=== PATIENT | female | born 1970 | race Caucasian/White ===

== ENCOUNTER 2017-03-24 18:34 | Emergency (ER) | payer SELFPAY ==
[~2017-03-24] VITALS: Ht 149.9 cm; Wt 80.0 kg
[~2017-03-24 18:34] MED LIST: AMOXICILLIN500 MG PO; AVELOX400 MG OR; BACTRIM DS1 TAB PO; BUSPAR5 MG PO; CIPRO500 MG OR; CITALOPRAM40 MG PO; FLEXERIL PO; FLOMAX0.4 M1 PO; FLOXIN OTIC OT; HYDROCHLOROT25 MG PO; LISINOP/HCTZ1 TA1 PO; LORTAB 10 OR; LORTAB 10-325 M1 TAB PO; LORTAB5 PO; MEDROL4 M1 PO; METFORMIN500 MG PO; NAPROSYN500 MG PO; NO MEDS; PAROXETINE10 MG PO; PAXIL30 MG PO; PREVACID30 M3 PO; ROBITUSS12 OR; TOPAMAX25 MG PO; ULTRAM50 M1 PO; ZOFRAN ODT4 MG PO; ZPAK OR; [UNRECOGNIZED DRUG - OTHER]
[2017-03-24] MEDS ORDERED: MEDDOSEPAK PO (18:51)
[2017-03-24 18:58] VITALS: BP 99/63
== END 2017-03-24 18:58 | disposition home or self-care (01) | DRG 607 ==
LOC: ED 18:34
DX: L30.9 Dermatitis, unspecified (principal)

== ENCOUNTER 2018-03-11 19:22 | Emergency (ER) | payer SELFPAY ==
[~2018-03-11] VITALS: Ht 149.9 cm; Wt 90.0 kg
[~2018-03-11 19:22] MED LIST changes: +MEDDOSEPAK PO
[2018-03-11 19:56] LABS: URINE BILIRUBIN - DIPSTICK NEGATIVE (NEGATIVE); URINE BLOOD DIPSTICK NEGATIVE (NEGATIVE); URINE COLOR YELLOW; URINE GLUCOSE - DIPSTICK NEGATIVE (NEGATIVE); URINE KETONE NEGATIVE (NEGATIVE); URINE LEUK ESTERASE NEGATIVE (NEGATIVE); URINE NITRITE - DIPSTICK NEGATIVE (Negative); URINE PROTEIN - DIPSTICK NEGATIVE (NEG-TRACE); URINE SPECIFIC GRAVITY 1.015; URINE UROBILINOGEN - DIPSTICK 0.2 E.U./dL (0.2)
[2018-03-11 20:29] LABS: URINE CLARITY CLEAR
[2018-03-11 20:40] VITALS: BP 130/78
[2018-03-11] MEDS ORDERED: AMOXICILLIN875 MG PO (20:47)
[2018-03-11] MEDS ORDERED: PROAIR HFA108 MCG/AC IN (20:47)
[2018-03-11] MEDS ORDERED: TESSALON PER100 MG PO (20:47)
== END 2018-03-11 21:10 | disposition home or self-care (01) | DRG 203 ==
LOC: ED 19:22
DX: J98.01 Acute bronchospasm (principal); J44.9 Chronic obstructive pulmonary disease, unspecified; F17.210 Nicotine dependence, cigarettes, uncomplicated; E11.9 Type 2 diabetes mellitus without complications; I10 Essential (primary) hypertension

== ENCOUNTER 2018-07-12 22:08 | Emergency (ER) | payer SELFPAY ==
[~2018-07-12] VITALS: Ht 149.9 cm; Wt 102.0 kg
[~2018-07-12 22:08] MED LIST changes: +AMOXICILLIN875 MG PO; +PROAIR HFA108 MCG/AC IN; +TESSALON PER100 MG PO
[2018-07-12] MEDS ORDERED: LISINOP/HCTZ1 TA1 PO (22:17)
[2018-07-12] MEDS ORDERED: PEPCID20 MG PO (22:50)
[2018-07-12] MEDS ORDERED: MEDDOSEPAK PO (22:50)
[2018-07-12] MEDS ORDERED: BENADRYL 50MG C50 MG PO (22:50)
[2018-07-12 23:15] VITALS: BP 170/97
== END 2018-07-12 23:15 | disposition home or self-care (01) | DRG 916 ==
LOC: ED 22:08
DX: T78.40XA Allergy, unspecified, initial encounter (principal); E11.9 Type 2 diabetes mellitus without complications; I10 Essential (primary) hypertension; F17.200 Nicotine dependence, unspecified, uncomplicated

== ENCOUNTER 2019-03-20 01:57 | Emergency (ER) | payer SELFPAY ==
[~2019-03-20] VITALS: Ht 149.9 cm; Wt 80.0 kg
[~2019-03-20 01:57] MED LIST changes: +BENADRYL 50MG C50 MG PO; +PEPCID20 MG PO
[2019-03-20] MEDS ORDERED: SINGULAIR10 MG PO (02:10)
[2019-03-20] MEDS ORDERED: CITALOPRAM20 M1 PO (02:11)
[2019-03-20] MEDS ORDERED: CORTISPORIN OTI10 M2 AS (02:20)
[2019-03-20 02:33] VITALS: BP 116/81
== END 2019-03-20 02:47 | disposition home or self-care (01) | DRG 156 ==
LOC: ED 01:57
DX: H60.92 Unspecified otitis externa, left ear (principal); E11.9 Type 2 diabetes mellitus without complications; I10 Essential (primary) hypertension; F17.210 Nicotine dependence, cigarettes, uncomplicated

== ENCOUNTER 2019-08-09 | Emergency (ER) | payer SELFPAY ==
[~2019-08-09] MED LIST changes: +CITALOPRAM20 M1 PO; +CORTISPORIN OTI10 M2 AS; +SINGULAIR10 MG PO
[2019-08-09 16:57] LABS: HEMATOCRIT 42.9 % (37.0-47.0); HEMOGLOBIN 13.9 g/dl (12.0-16.0); IMMATURE GRANULOCYTES 0.5 % (0.0-5.0); MEAN CELL VOLUME 90.3 fL CALC (80.0-100.0); MEAN CORPUSCULAR HGB 29.3 pG CALC (26.0-32.0); MEAN CORPUSCULAR HGB CONC 32.4 g/L CALC (32.0-36.0); NEUT# 6.86 thou/uL (2.00-7.15); RED BLOOD COUNT 4.75 mill/uL (4.20-5.60); RED CELL DISTRI WIDTH 11.9 % (11.5-15.5)
[2019-08-09] MEDS ORDERED: VENTOLIN HFA IN (18:11)
[2019-08-09] MEDS ORDERED: PREDNISONE50 MG PO (18:11)
[2019-08-09] MEDS ORDERED: DOXYCYCL HYC100 MG PO (18:11)
== END 2019-08-09 18:32 | disposition home or self-care (01) | DRG 203 ==
PROVIDERS: Family Medicine
DX: J20.9 Acute bronchitis, unspecified (principal); E11.9 Type 2 diabetes mellitus without complications; I10 Essential (primary) hypertension; F17.200 Nicotine dependence, unspecified, uncomplicated; Z79.84 Long term (current) use of oral hypoglycemic drugs

== ENCOUNTER 2019-12-27 11:42 | Emergency (ER) | payer SELFPAY ==
[~2019-12-27 11:42] MED LIST changes: +DOXYCYCL HYC100 MG PO; +PREDNISONE50 MG PO; +VENTOLIN HFA IN
[2019-12-27] MEDS ORDERED: SYMBICORT1 AE1 IN (12:12)
[2019-12-27] MEDS ORDERED: SPIRIVA HANDIHALER IN (12:13)
[2019-12-27 12:31] LABS: HEMATOCRIT 39.8 % (37.0-47.0); HEMOGLOBIN 12.8 g/dl (12.0-16.0); IMMATURE GRANULOCYTES 0.6 % (0.0-5.0); MEAN CELL VOLUME 91.1 fL CALC (80.0-100.0); MEAN CORPUSCULAR HGB 29.3 pG CALC (26.0-32.0); MEAN CORPUSCULAR HGB CONC 32.2 g/dL CAL (32.0-36.0); NEUT# 7.2 thou/uL (2.00-7.15); RED BLOOD COUNT 4.37 mill/uL (4.20-5.60); RED CELL DISTRI WIDTH 12.5 % (11.5-15.5)
[2019-12-27 12:32] LABS: URINE BILIRUBIN - DIPSTICK NEGATIVE (NEGATIVE); URINE BLOOD DIPSTICK NEGATIVE (NEGATIVE); URINE COLOR YELLOW; URINE GLUCOSE - DIPSTICK NEGATIVE (NEGATIVE); URINE KETONE NEGATIVE (NEGATIVE); URINE LEUK ESTERASE NEGATIVE (NEGATIVE); URINE NITRITE - DIPSTICK NEGATIVE (Negative); URINE PROTEIN - DIPSTICK NEGATIVE (NEG-TRACE); URINE UROBILINOGEN - DIPSTICK 0.2 E.U./dL (0.2)
[2019-12-27 12:43] LABS: ALBUMIN 3.8 g/dL (3.2-5.0); ALKALINE PHOSPHATASE 102 u/l (38-126); ANION GAP 9 (6-22 (CALC)); BILIRUBIN, TOTAL 0.4 mg/dL (0.0-1.4); BUN 10 mg/dL (7-17); BUN/CREATININE RATIO 13 (12-20 (CALC)); CARBON DIOXIDE 24 mmol/l (22-30); CHLORIDE 107 mmol/l (95-108); CREATININE 0.8 mg/dL (0.5-1.0); GFR > 60 ML/MIN (>=60 (CALC)); GFR FOR AFR.AMER. > 60 ML/MIN (>=60 (CALC)); LIPASE 63 u/l (23-300); MAGNESIUM 1.9 mg/dL (1.6-2.3); POTASSIUM 4.2 mmol/l (3.5-5.1); SGOT/AST 19 u/l (14-36); SODIUM 137 mmol/l (137-146); TOTAL PROTEIN 6.7 g/dL (6.3-8.2)
[2019-12-27 14:11] VITALS: BP 145/69
== END 2019-12-27 14:21 | disposition home or self-care (01) | DRG 948 ==
LOC: ED 11:42
PROVIDERS: Family Medicine
DX: R53.1 Weakness (principal); R05 Cough; E11.9 Type 2 diabetes mellitus without complications; I10 Essential (primary) hypertension; F17.200 Nicotine dependence, unspecified, uncomplicated; Z20.828 Contact with and (suspected) exposure to other viral communicable diseases

== ENCOUNTER 2020-01-03 16:51 | Emergency (ER) | payer SELFPAY ==
[~2020-01-03 16:51] MED LIST changes: +SPIRIVA HANDIHALER IN; +SYMBICORT1 AE1 IN
[2020-01-03] MEDS ORDERED: AMOXICILLIN875 MG PO (17:37)
[2020-01-03] MEDS ORDERED: LORTAB 1010 MG PO (17:37)
[2020-01-03] MEDS ORDERED: FLOXIN OTIC0.3 % AS (17:37)
[2020-01-03 17:52] VITALS: BP 140/89
== END 2020-01-03 17:53 | disposition home or self-care (01) | DRG 153 ==
LOC: ED 16:51
DX: H66.92 Otitis media, unspecified, left ear (principal); I10 Essential (primary) hypertension; J44.9 Chronic obstructive pulmonary disease, unspecified; F17.210 Nicotine dependence, cigarettes, uncomplicated

== ENCOUNTER 2020-08-13 13:40 | Emergency (ER) | payer SELFPAY ==
[~2020-08-13] VITALS: Ht 149.9 cm; Wt 92.3 kg
[~2020-08-13 13:40] MED LIST changes: +FLOXIN OTIC0.3 % AS; +LORTAB 1010 MG PO
[2020-08-13] MEDS ORDERED: HYDROCHLOROTH12.5 M1 PO (15:15)
[2020-08-13] MEDS ORDERED: METFORMIN500 M2 PO (15:15)
[2020-08-13 15:16] LABS: URINE BILIRUBIN - DIPSTICK NEGATIVE (NEGATIVE); URINE BLOOD DIPSTICK NEGATIVE (NEGATIVE); URINE COLOR YELLOW; URINE GLUCOSE - DIPSTICK NEGATIVE (NEGATIVE); URINE KETONE NEGATIVE (NEGATIVE); URINE LEUK ESTERASE SMALL (Negative); URINE NITRITE - DIPSTICK NEGATIVE (Negative); URINE PH 6.5 (4.5-8.0); URINE PROTEIN - DIPSTICK NEGATIVE (NEG-TRACE); URINE UROBILINOGEN - DIPSTICK 0.2 E.U./dL (0.2)
[2020-08-13] MEDS ORDERED: VENTOLIN HF1 IN (15:16)
[2020-08-13 15:20] LABS: URINE CLARITY HAZY
[2020-08-13 15:27] LABS: URINE RBC 0-2 RBC/hpf (0-5); URINE SQUAMOUS EPITHELIAL CELL MANY EPI/hpf (0-FEW)
[2020-08-13] MEDS ORDERED: TESSALON PERLE100 MG PO (16:14)
[2020-08-13 16:16] VITALS: BP 125/78
== END 2020-08-13 16:44 | disposition home or self-care (01) | DRG 866 ==
LOC: ED 13:40
DX: B34.9 Viral infection, unspecified (principal); I10 Essential (primary) hypertension; J44.9 Chronic obstructive pulmonary disease, unspecified; F17.210 Nicotine dependence, cigarettes, uncomplicated; Z20.822 Contact with and (suspected) exposure to COVID-19

== ENCOUNTER 2021-01-24 10:59 | Emergency (ER) | payer SELFPAY ==
[~2021-01-24] VITALS: Ht 149.9 cm; Wt 85.0 kg
[~2021-01-24 10:59] MED LIST changes: +HYDROCHLOROTH12.5 M1 PO; +METFORMIN500 M2 PO; +TESSALON PERLE100 MG PO; +VENTOLIN HFA108 MCG IN
[2021-01-24] MEDS ORDERED: NAPROXEN500 MG PO (11:56)
[2021-01-24 12:19] VITALS: BP 136/82
== END 2021-01-24 12:19 | disposition home or self-care (01) | DRG 563 ==
LOC: ED 10:59
DX: S43.401A Unspecified sprain of right shoulder joint, initial encounter (principal); I10 Essential (primary) hypertension; J44.9 Chronic obstructive pulmonary disease, unspecified; F17.200 Nicotine dependence, unspecified, uncomplicated; W01.0XXA Fall on same level from slipping, tripping and stumbling without subsequent striking against object, initial encounter; Y92.009 Unspecified place in unspecified non-institutional (private) residence as the place of occurrence of the external cause

== ENCOUNTER 2021-08-25 21:33 | Emergency (ER) | payer SELFPAY ==
[~2021-08-25] VITALS: Ht 149.9 cm; Wt 89.5 kg
[~2021-08-25 21:33] MED LIST changes: +NAPROXEN500 MG PO
[2021-08-25 22:33] LABS: IMMATURE GRANULOCYTES 0.1 % (0.0-5.0); MEAN CELL VOLUME 90.5 fL CALC (80.0-100.0); MEAN CORPUSCULAR HGB 29.5 pG CALC (26.0-32.0); MEAN CORPUSCULAR HGB CONC 32.6 g/dL CAL (32.0-36.0); NEUT# 9.16 thou/uL (2.00-7.15); RED BLOOD COUNT 4.75 mill/uL (4.20-5.60); RED CELL DISTRI WIDTH 11.7 % (11.5-15.5)
[2021-08-25 22:50] LABS: ALKALINE PHOSPHATASE 139 u/l (38-126); ANION GAP 10 (6-22 (CALC)); BILIRUBIN, TOTAL 0.4 mg/dL (0.0-1.4); BUN 13 mg/dL (7-17); BUN/CREATININE RATIO 16 (12-20 (CALC)); CARBON DIOXIDE 28 mmol/l (22-30); CHLORIDE 100 mmol/l (95-108); CREATININE 0.8 mg/dL (0.5-1.0); GFR > 60 ML/MIN (>=60 (CALC)); GFR FOR AFR.AMER. > 60 ML/MIN (>=60 (CALC)); POTASSIUM 4.5 mmol/l (3.5-5.1); SODIUM 133 mmol/l (137-146); TOTAL PROTEIN 7.9 g/dL (6.3-8.2)
[2021-08-25 22:55] LABS: SGOT/AST 39 u/l (14-36)
[2021-08-25 22:58] LABS: ACT PARTIAL THROMBO TIME 24.9 SECONDS (20.0-32.5); INTERNATIONAL NORMALIZED RATIO 0.9 RATIO (0.7-1.3); PROTHROMBIN TIME 9.3 SECONDS (9.0-12.5)
[2021-08-25 23:02] LABS: MYOGLOBIN 30 ng/mL (0 - 62)
[2021-08-25 23:05] LABS: URINE BILIRUBIN - DIPSTICK NEGATIVE (NEGATIVE); URINE BLOOD DIPSTICK NEGATIVE (NEGATIVE); URINE COLOR YELLOW; URINE GLUCOSE - DIPSTICK >=1000 mg/dL (NEGATIVE); URINE KETONE NEGATIVE (NEGATIVE); URINE LEUK ESTERASE NEGATIVE (NEGATIVE); URINE PROTEIN - DIPSTICK NEGATIVE (NEG-TRACE); URINE SPECIFIC GRAVITY 1.015; URINE UROBILINOGEN - DIPSTICK 0.2 E.U./dL (0.2)
[2021-08-25 23:07] LABS: URINE NITRITE - DIPSTICK NEGATIVE (Negative)
[2021-08-26 01:35] VITALS: BP 146/78
== END 2021-08-26 01:40 | disposition home or self-care (01) | DRG 313 ==
LOC: ED 21:33
DX: R07.9 Chest pain, unspecified (principal); I10 Essential (primary) hypertension; J44.9 Chronic obstructive pulmonary disease, unspecified; Z20.822 Contact with and (suspected) exposure to COVID-19; F17.200 Nicotine dependence, unspecified, uncomplicated

== ENCOUNTER 2022-07-29 14:59 | Emergency (ER) | payer BC ==
[~2022-07-29] VITALS: Ht 149.9 cm; Wt 81.8 kg
[2022-07-29] VITALS (10 sets, daily range): BP systolic 115–154; BP diastolic 70–94
[2022-07-29 15:43] LABS: BASO% 0.4 % (0-3); EOS% 0.1 % (0-8); IMMATURE GRANULOCYTES 0.3 % (0.0-5.0); LYMPH% 13.5 % (15-41); MEAN CELL VOLUME 87.5 fL CALC (80.0-100.0); MEAN CORPUSCULAR HGB 30.4 pG CALC (26.0-32.0); MEAN CORPUSCULAR HGB CONC 34.8 g/dL CAL (32.0-36.0); MONO% 6.9 % (2-13); NEUT# 9.2 thou/uL (2.00-7.15); NEUT% 78.8 % (42-76); RED BLOOD COUNT 5.26 mill/uL (4.20-5.60); RED CELL DISTRI WIDTH 11.8 % (11.5-15.5)
[2022-07-29 16:09] LABS: ALBUMIN 4.4 g/dL (3.2-5.0); ANION GAP 13 (6-22 (CALC)); BUN 11 mg/dL (7-17); BUN/CREATININE RATIO 16 (12-20 (CALC)); CARBON DIOXIDE 24 mmol/l (22-30); CHLORIDE 98 mmol/l (95-108); CREATININE 0.7 mg/dL (0.5-1.0); GFR FOR AFR.AMER. > 60 ML/MIN (>=60 (CALC)); GFR OTHER RACES > 60 ML/MIN (>=60 (CALC)); LIPASE 48 u/l (23-300); POTASSIUM 4.6 mmol/l (3.5-5.1); SODIUM 130 mmol/l (137-146); TOTAL PROTEIN 8.5 g/dL (6.3-8.2)
[2022-07-29 16:27] LABS: ALKALINE PHOSPHATASE 225 u/l (38-126); SGOT/AST 206 u/l (14-36)
[2022-07-29 19:04] LABS: URINE BILIRUBIN - DIPSTICK NEGATIVE (NEGATIVE); URINE BLOOD DIPSTICK TRACE-INTACT (NEGATIVE); URINE COLOR YELLOW; URINE GLUCOSE - DIPSTICK 100 mg/dL (NEGATIVE); URINE KETONE NEGATIVE (NEGATIVE); URINE LEUK ESTERASE NEGATIVE (NEGATIVE); URINE PROTEIN - DIPSTICK NEGATIVE (NEG-TRACE); URINE SPECIFIC GRAVITY 1.015
[2022-07-29 19:13] LABS: URINE NITRITE - DIPSTICK NEGATIVE (Negative)
[2022-07-29] MEDS ORDERED: VIBRAMYCIN100 M2 PO (19:33)
[2022-07-29] MEDS ORDERED: VENTOLIN HFA IN (19:33)
== END 2022-07-29 19:50 | disposition home or self-care (01) | DRG 864 ==
LOC: ED 14:59
PROVIDERS: Family Medicine
DX: R50.9 Fever, unspecified (principal); R00.0 Tachycardia, unspecified; E11.9 Type 2 diabetes mellitus without complications; I10 Essential (primary) hypertension
CPT/HCPCS: Q9967

== ENCOUNTER 2024-04-27 11:56 | Emergency (ER) | payer OTHER ==
[~2024-04-27] VITALS: Ht 149.9 cm; Wt 77.7 kg
[~2024-04-27 11:56] MED LIST changes: +CITALOPRAM10 M1 PO; +COZAAR25 MG PO; +DICYCLOMINE HYD10 MG PO; +GLYBURIDE5 M1 PO; +VIBRAMYCIN100 M2 PO
[2024-04-27] MEDS ORDERED: KETOROLAC TROMETHAMINE 30 MG/ML SDV IM ONE (12:10)
[2024-04-27] MEDS ORDERED: PENicillin V POTASSIUM 500 MG/TAB PO ONE (12:10)
[2024-04-27] MEDS ORDERED: TRAMADOL HYDROC50 M1 PO (12:15)
[2024-04-27] MEDS ORDERED: PENICILLN VK500 MG PO (12:15)
[2024-04-27] MEDS ORDERED: NAPROXEN500 MG PO (12:15)
[2024-04-27 12:33] VITALS: BP 132/81
== END 2024-04-27 12:39 | disposition home or self-care (01) | DRG 159 ==
LOC: ED 11:56
DX: K04.7 Periapical abscess without sinus (principal)